=== PATIENT | female | born 1935 | race Caucasian/White ===

== ENCOUNTER → 2016-12-13 | Day surgery (SDC) | payer MEDICARE, BC ==
[~2016-12-13] VITALS: Ht 162.6 cm; Wt 54.6 kg
[~2016-12-13] MED LIST: COZAAR100 MG PO; CRANBERRY TABL1 EACH PO; DPS FOR LIBRAX1 CAP PO; PAMELOR10 MG PO; PRESERVISION A1 EAC1 PO; REFRESH PLUS1 EACH OPHTH; THERA-VITE W/ B1 TAB PO; TOPROL XL 5050 MG PO; TYLENOL EXTRA500 MG PO; TYLENOL PM EX-1 EACH PO; ZOCOR10 MG PO
== END | disposition disaster alternative care site (69) ==
LOC: GPOC 12-12 17:00 → GEND 07:49 → GPOC 08:30
PROC: 0DBP8ZX Excision of Rectum, Via Natural or Artificial Opening Endoscopic, Diagnostic (ICD-10-PCS; principal; 2016-12-13)
DX: K62.5 Hemorrhage of anus and rectum (principal); K62.4 Stenosis of anus and rectum; K57.30 Diverticulosis of large intestine without perforation or abscess without bleeding; M81.0 Age-related osteoporosis without current pathological fracture; M19.90 Unspecified osteoarthritis, unspecified site; K21.9 Gastro-esophageal reflux disease without esophagitis; F32.9 Major depressive disorder, single episode, unspecified; I10 Essential (primary) hypertension; E78.00 Pure hypercholesterolemia, unspecified; Z90.710 Acquired absence of both cervix and uterus; Z98.890 Other specified postprocedural states; Z90.49 Acquired absence of other specified parts of digestive tract; Z98.41 Cataract extraction status, right eye; Z98.42 Cataract extraction status, left eye; Z79.899 Other long term (current) drug therapy; Z88.2 Allergy status to sulfonamides
CPT/HCPCS: J2001; J7030